=== PATIENT | male | born 1995 | race Caucasian/White ===

== ENCOUNTER 2019-05-02 19:38 | Emergency (ER) | payer SELFPAY ==
[~2019-05-02] VITALS: Ht 177.8 cm; Wt 68.0 kg
[2019-05-02 19:39] VITALS: BP 153/52
--- NOTE | 2019-05-02 19:39 | NUR ---
PT BIB EMS FROM [facility] C/O "BENZO WITHDRAWALS". N/V, CHILLS. PT AOX4. PT APPEARS TO BE RESTLESS. PT DENIES PAIN AT THIS TIME. PT REPORTS DISCOMFORT, AND FEELING WORSE THAN USUAL. PT ON MONITOR IN BED 4. NAD NOTED. WILL CONTINUE TO MONITOR.
[2019-05-02] MEDS ORDERED: LORAZEPAM INJ 2 MG/ML VIAL ONE ×2 (19:55→20:21)
--- NOTE | 2019-05-02 19:59 | NUR ---
BLOOD DRAWN AND GIVEN TO PHLEB
[2019-05-02] MEDS ORDERED: IV NS 0.9% 1,000 ML BAG IV ONE (20:00)
[2019-05-02] MEDS ORDERED: LORAZEPAM INJ 2 MG/ML VIAL IVP ONE (20:00)
[2019-05-02 20:03] LABS: BASOPHILS % (AUTO) 0.6 % (0.0-2.0); EOSINOPHILS % (AUTO) 0.5 % (0.0-6.0); HEMATOCRIT 36 % (39-51); LYMPHOCYTES % (AUTO) 24.6 % (20.0-44.0); MEAN CORPUSCULAR HGB CONC 34 g/dl (31.0-36.0); MEAN CORPUSCULAR VOLUME 90 fL (80-96); MONOCYTES # (AUTO) 0.7 /CMM (0.1-1.30); MONOCYTES % (AUTO) 9.1 % (2.0-12.0); NEUTROPHILS # (AUTO) 5.3 /CMM (1.8-8.9); NEUTROPHILS % (AUTO) 65.2 % (43.0-81.0); PLATELET COUNT (AUTO) 202 /CMM (150-450); RED BLOOD CELL COUNT(AUTO) 3.96 MIL/uL (4.5-6.0); WHITE BLOOD COUNT (AUTO) 8.1 K/uL (4.3-11.0)
[2019-05-02 20:09] LABS: CALCIUM, SERUM 9.3 mg/dL (8.5-10.1); CARBON DIOXIDE 26 mmol/L (21-32); CHLORIDE 99 mmol/L (98-107); CREATININE 1.2 mg/dL (0.6-1.3); GLUCOSE 127 mg/dL (74-106); POTASSIUM 3.3 mmol/L (3.5-5.1); SODIUM SERUM 139 mmol/L (136-145); UREA NITROGEN, BLOOD 16 mg/dL (7-18)
[2019-05-02 20:22] LABS: ALANINE AMINOTRANSFERASE 44 U/L (12-78); ALCOHOL, BLOOD < 3 mg/dL (0-0); ALKALINE PHOSPHATASE 72 U/L (46-116); ASPARTATE AMINOTRANSFERASE 66 U/L (15-37); BILIRUBIN,DIRECT 0.2 mg/dL (0.0-0.2); TOTAL PROTEIN, SERUM 8.2 g/dL (6.4-8.2)
[2019-05-02 20:23] LABS: ACETAMINOPHEN < 2 ug/ml (10-30); SALICYLATE 1.4 mg/dL (2.8-20.0)
[2019-05-02] MEDS ORDERED: LORAZEPAM INJ 2 MG/ML VIAL IV ONE (20:30)
[2019-05-02] MEDS ORDERED: POTASSIUM CHLORIDE 20 MEQ TAB.PRT.SR PO ONE ×2 (20:42→21:00)
--- NOTE | 2019-05-02 21:24 | NUR ---
IV removed. Catheter intact and site benign. Pressure and 4x4 applied to site. No bleeding noted.Patient discharged to home in stable condition. Written and verbal after care instructions given. Patient verbalizes understanding of instruction. PT STATES WILL BE GOING BACK TO SAME [facility]SE AND WILL BE PICKED UP BY STAFF MEMBER FROM FACILITY.
== END 2019-05-02 21:24 | disposition home or self-care (01) ==
LOC: ER 19:40
DX: F13.239 Sedative, hypnotic or anxiolytic dependence with withdrawal, unspecified (principal); F19.10 Other psychoactive substance abuse, uncomplicated; R11.2 Nausea with vomiting, unspecified; Z91.048 Other nonmedicinal substance allergy status
CPT/HCPCS: 36415; 80048; 80076; 80307; 80329; 85025; 96361; 96374; 96376; 99284; G0480; J2060 ×2; J7030